=== PATIENT | female | born 1990 | race Two or more races ===

== ENCOUNTER 2018-06-21 22:24 | Emergency (ER) | payer SELFPAY ==
[~2018-06-21] VITALS: Ht 157.5 cm; Wt 63.6 kg
[2018-06-21 22:29] VITALS: BP 107/72
[2018-06-21 22:39] LABS: GLUCOSE,POINT OF CARE 123 MG/DL (70-110)
== END 2018-06-21 22:51 | disposition left against medical advice (07) ==
LOC: EMS 22:25
DX: F10.129 Alcohol abuse with intoxication, unspecified (principal); Z53.21 Procedure and treatment not carried out due to patient leaving prior to being seen by health care provider